=== PATIENT | male | born 1960 | race Caucasian/White ===

== ENCOUNTER 2017-01-03 09:09 | Emergency (ER) | payer SELFPAY ==
[~2017-01-03] VITALS: Ht 172.7 cm; Wt 109.6 kg
[~2017-01-03 09:09] MED LIST: ALBU1AER INH; BENZ100 PO; MEDR4PAK3 PO; ZITH250T PO
[2017-01-03 09:24] VITALS: BP 168/81; PULSE 91; RESP 18; TEMP 99.1; O2SAT 95
[2017-01-03] MEDS ORDERED: GUAI100S5 PO (09:34)
[2017-01-03] MEDS ORDERED: ALBU6.7H INH (09:34)
[2017-01-03] MEDS ORDERED: AZIT250T3 PO (09:34)
--- NOTE | 2017-01-03 09:35 | PD ---
HPI Chief Complaint: Cold / Flu Symptoms Time Seen by Provider: 09:29 Travel History International Travel<30 days: No Contact w/Intl Traveler<30days: Yes Traveled to known affect area: No History of Present Illness HPI 56-year-old male arrives complaining of productive cough, white phlegm for about 4 days. It has made sleeping difficult. Subjective fever from yesterday evening reported. Sore throat and some chest pain associated with the coughing episodes is reported. Chest pain is attributed to the muscular pain with repeated coughing. The patient did fly from [place] to [place] within the last couple weeks. He has no rash or history of rash. No headache or retro- orbital cephalgia. No history of smoking. PFSH Past Medical History Medical History: Denies Significant Hx Cancer: No Cardiovascular Problems: Yes (HIGH BP) Endocrine: No Implanted Vascular Access Dvce: No Sleep Apnea: Yes Influenza Vaccination: No Past Surgical History Surgical History: No Previous Surgery Thoracic Surgery: Yes (ABOUT 15 YEARS AGO ) Other Surgery: Yes (CHEST TUBE/ sinoplasty/throat surgery) Social History Alcohol Use: Yes ([facility]) Tobacco Use: No (quit 15 yrs ago) Substance Use: No Allergies-Medications (Allergen,Severity, Reaction): Coded Allergies: No Known Allergies (Unverified , 01/03/17) Reported Meds & Prescriptions Reported Meds & Active Scripts Active Guaifenesin-Codeine Liq 100-10 Mg/5 Ml Soln 10 Ml PO HS PRN 3 Days Proventil Hfa 6.7 GM Inh (Albuterol Sulfate) 90 Mcg/Act Aer 2 Puff INH Q4-6H PRN Azithromycin 250 Mg Tab 250 Mg PO DIRECTED Take 2 tabs (500 mg) on day 1 then 1 tab daily x 4 days. Review of Systems General / Constitutional: Positive: Fever Physical Exam Narrative GENERAL: Well-nourished well-developed 56-year-old male no acute distress speaking full sentences frequent coughs CARDIOVASCULAR: Regular rate and rhythm without murmurs, gallops, or rubs. RESPIRATORY: Occasional coarse breath sounds bilaterally. No significant tachypnea. Frequent cough on exam. Data Data Last Documented VS Vital Signs Date Time Temp Pulse Resp B/P Pulse Ox O2 Delivery O2 Flow Rate FiO2 01/03/17 09:24 99.1 91 18 168/81 95 Vital signs reviewed [facility] Medical Decision Making Medical Screen Exam Complete: Yes Emergency Medical Condition: Yes Medical Record Reviewed: Yes Differential Diagnosis Pneumonia, bronchitis, sepsis, inflammatory airway disease Narrative Course The recent plane travel was noted however he has no sign of Z[place] virus or any other exotic viral infection this point. Patient may have an infectious respiratory process, atypical pneumonia possibly bronchitis. Scripts as below. Diagnosis Primary Impression: Cough Referrals: Primary Care Physician 2 days Additional Instructions: Please follow-up with your primary care provider if you still have a cough within the next 2 days. If you develop a constant fever or constant chest pain or shortness of breath please return to the ER. If symptoms worsen please return. Med/Other Pt SpecificInfo: Prescription(s) given Scripts Guaifenesin-Codeine Liq 100-10 Mg/5 Ml Soln10 Ml PO HS PRN (COUGH) 3 Days Ref 0 Prov:Ovi Hoskins MD 01/03/17 Albuterol 6.7 GM Inh (Proventil Hfa 6.7 GM Inh)90 Mcg/Act Aer2 Puff INH Q4-6H PRN (COUGH) #1 INHALER Ref 0 Prov:Ovi Hoskins MD 01/03/17 Azithromycin 250 Mg [id number] Mg PO DIRECTED #6 TAB Ref 0 Take 2 tabs (500 mg) on day 1 then 1 tab daily x 4 days. Prov:Ovi Hoskins MD 01/03/17 Disposition: 01 DISCHARGE HOME Condition: Stable Ovi Hoskins MD Jan 03, 2017 09:35
== END 2017-01-03 09:45 | disposition home or self-care (01) ==
LOC: PHED 09:09
DX: R05 Cough (principal); Z87.891 Personal history of nicotine dependence
CPT/HCPCS: 99284